=== PATIENT | male | born 1970 | race Caucasian/White ===

== ENCOUNTER 2022-06-22 09:03 | Emergency (ER) | payer BC ==
[2022-06-22] MEDS ORDERED: Sodium Chloride 0.9% 10 ML Syringe FLUSH PRN (09:59)
[2022-06-22] MEDS ORDERED: cefTRIAXone 1 GM, Lidocaine 1% 2.1 ML IM ONE ×2 (12:24)
== END 2022-06-22 13:20 | disposition home or self-care (01) ==
LOC: JD.ED 09:03
DX: S92.414A Nondisplaced fracture of proximal phalanx of right great toe, initial encounter for closed fracture (principal); L03.031 Cellulitis of right toe; E11.9 Type 2 diabetes mellitus without complications; H53.8 Other visual disturbances; I10 Essential (primary) hypertension; Z86.16 Personal history of COVID-19
CPT/HCPCS: 36415; 70450; 73630; 80053; 83605; 85025; 85652; 86140; 96372; 99284; J0696; J3490